=== PATIENT | male | born 1980 | race Caucasian/White ===

== ENCOUNTER 2022-03-08 08:03 | Emergency (ER) | payer BC ==
[~2022-03-08] VITALS: Ht 177.8 cm; Wt 90.7 kg
[2022-03-08] MEDS ORDERED: WELLBUTRIN XL300 MG (08:11)
[2022-03-08] MEDS ORDERED: LIPITOR20 MG (08:11)
== END 2022-03-08 08:57 | disposition home or self-care (01) ==
LOC: ER 08:03
DX: J02.9 Acute pharyngitis, unspecified (principal); I10 Essential (primary) hypertension